=== PATIENT | male | born 1980 | race Two or more races ===

== ENCOUNTER 2016-05-11 11:54 | Emergency (ER) | payer OTHER ==
[2016-05-11 12:01] VITALS: BP 128/70; PULSE 85; RESP 16; TEMP 99; O2SAT 96
--- NOTE | 2016-05-11 12:27 | UCPHY ---
H & P Patient Type: New Chief Complaint Nursing Narrative: FELL ONTO R SHOULDER LAST EVENING RIDING MOTORIZED SKATE BOARD HPI/ROS: CHIEF COMPLAINT: 05/11/16 HISTORY OF PRESENT ILLNESS: This patient is a 35 year old man right hand dominant presenting with acute right shoulder injury, sustained last night after falling off his "one board", which is similar to a motorized snowboard/ skateboard. He complains of moderate pain localized to his distal clavicle/AC joint, rated 6/10 at rest, which becomes severe 9/10 with arm movement. He sustained some other abrasions in the fall, but no other serious injuries. He denies loss of consciousness, neck pain, back pain, chest pain, or abdominal pain. He admits to drinking alcohol last night. He denies numbness or weakness of right arm or hand. REVIEW OF SYSTEMS: A ten point review of systems was performed and is negative with the exception of the items mentioned in the HPI. Source: Patient Exam Limitations: No limitations - Personal History Current Tetanus Diphtheria and Acellular Pertussis (TDAP): Yes Tetanus Vaccine Date: < 10 YEARS - Medical/Surgical History Hx Chronic Respiratory Disease: No Hx Diabetes: No Hx Cardiac Disease: No Hx Renal Disease: No Hx Cirrhosis: No Hx Alcoholism: No Hx Splenectomy or Spleen Trauma: No Other PMH: DENIES - Family History Significant Family History: No pertinent family hx - Social History Smoking Status: Light smoker Alcohol Use: Occasionally Additional Social History: He works for [employer]. - Physical Exam Exam: General Appearance: Alert. Vital signs reviewed. Head: Normocephalic, atraumatic. Eyes: Pupils equal and round, no conjunctival injection, no discharge. ENT, Mouth: Mucous membranes are moist, no oropharyngeal erythema or edema. No hemotympanum. No dental injury. Neck: No lymphadenopathy, supple. Nontender over C-spine in the midline, no pain with AROM. Respiratory: Lungs are clear to auscultation; no wheezes, rales, or rhonchi. Cardiovascular: Regular rate and rhythm; no murmur, rub, or gallop. Gastrointestinal: Abdomen is soft and nontender, no masses or organomegaly, bowel sounds normal. Skin: Warm and dry, no rashes on exposed skin, normal color. Abrasions to the right lateral eyebrow, right forearm, and right anterior arciniega. Back: Nontender to palpation over the thoracolumbar spine. Extremities: Right clavicular tenderness over the AC joint. Holding right arm flexed at the elbow, against his body. He has pain with right shoulder movement ; is able to flex/ext right elbow and right wrist. 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 Pulse: 2+ right radial pulse. Neurological: Alert and oriented. Normal gait. Sensation intact to light touch over both upper extremities. Psychiatric: Normal affect. Constitutional: Initial Vital Signs Temperature (C) 37.2 C 05/11/16 11:57 Heart Rate 85 05/11/16 11:57 Respiratory Rate 16 05/11/16 11:57 Blood Pressure 128/70 H 05/11/16 11:57 O2 Sat (%) 96 05/11/16 11:57 O2 Delivery Mode Room Air Allergies/Adverse Reactions: No Known Allergies Allergy (Unverified 05/11/16 12:01) Home Medications: Medication Instructions Recorded NK [No Known Home Meds] 05/11/16 Medical Decision Making - Diagnostics Imaging: X-ray of the right clavicle was obtained. I viewed the images myself on the PACS system. My interpretation of the images is: No acute fracture or dislocation. However, the initial views show abnormality of distal right clavicle. Dr. Carballo requests third view, which was done. The final interpretation is: Probably old injury to distal right clavicle with resorption of distal head of fracture with remodeling. There is widening of the AC joint. ED Course/Re-evaluation: Xrays reviewed by me and discussed with radiologist. There appears to be an old injury of the right clavicle and, on questioning, the patient reports remote right clavicle injury. There is shortening of the distal aspect of the right clavicle--either resorption or remodeling. AC joint is widened--this is likely chronic, but could theoretically have been worsened by recent fall. He is placed in sling, instructions for sprain/AC separation given verbally. Small quantity of pain medication supplied. He will FU with his PCP. Differential Diagnosis: I considered a differential diagnosis that includes but is not limited to fracture, dislocation, AC separation, sprain, and contusion. - Data Points Medications Given: Discontinued Medications Hydrocodone Bitart/Acetaminophen ([place] 5/325mg Prepack#6) 1 btl TAKEHOME EDNOW ONE Stop: 05/11/16 15:10 Last Admin: 05/11/16 15:10 Dose: 1 btl Departure - Departure Disposition: Home, Routine, Self-Care Clinical Impression: Contusion of right clavicle Qualifiers: Encounter type: initial encounter Qualified Code(s): S40.011A - Contusion of right shoulder, initial encounter Condition: Good Instructions: Contusion in Adults (ED) Additional Instructions: Adult Pain & Fever Control: We recommend Acetaminophen (Tylenol) and Ibuprofen (Motrin,Advil) for pain and fever control. When fever is high or pain severe, both drugs can be used at the same time, but at different intervals. Please note the time differences. Your dose is: Acetaminophen 650mg every 4 to 6 hours Ibuprofen 400mg every 4 hours with food OR Note: do not take Acetaminophen with Hydrocodone (Vicodin, Lortab) or Oycodone (Percocet). These medications also contain Acetaminophen. No more than 3000mg of Acetaminophen should be taken in 24 hours (for an adult).Rest, ice, elevation. Follow up with an orthopedic surgeon in one week if pain persists. Return to the emergency department for worsening pain, swelling, numbness, weakness or other concerns. Wear sling for comfort. Referrals: Neil Guajardo MD [Primary Care Provider] - As per Instructions - PQRS PQRS Measurement: Does not apply Report Scribed for: Brenda Auguste Report Scribed by: Noemi Vazquez Date of Report: 05/11/16 Time of Report: 13:17 Physician Review and Approval Statement: 05/11/16 16:12 Portions of this note were transcribed by the ophthalmic medical assistant. I, Dr. Brenda Auguste, personally performed the history, physical exam, and medical decision- making; and confirmed the accuracy of the information in the transcribed note.
[2016-05-11] MEDS ORDERED: HYDROCOD/APAP 5/325 PREPACK#6 BTL TAKEHOME ONE (15:09)
== END 2016-05-11 15:10 | disposition home or self-care (01) ==
LOC: CED 11:54
DX: S40.011A Contusion of right shoulder, initial encounter (principal); Z72.0 Tobacco use; V00.891A Fall from other pedestrian conveyance, initial encounter
CPT/HCPCS: 73000-PO; G0463-PO